=== PATIENT | female | born 1995 | race Two or more races ===

== ENCOUNTER 2020-11-06 13:25 | Emergency (ER) | payer MEDICAID, OTHER ==
[~2020-11-06] VITALS: Ht 162.6 cm; Wt 64.9 kg
[2020-11-06 14:02] VITALS: BP 137/77
== END 2020-11-06 14:34 | disposition home or self-care (01) ==
LOC: ER 13:27
DX: S92.422A Displaced fracture of distal phalanx of left great toe, initial encounter for closed fracture (principal); W22.8XXA Striking against or struck by other objects, initial encounter; Y93.89 Activity, other specified; Y92.89 Other specified places as the place of occurrence of the external cause; Y99.8 Other external cause status
CPT/HCPCS: 73630; 99283; L3260

== ENCOUNTER 2021-11-15 17:21 | Emergency (ER) | payer MEDICAID ==
[~2021-11-15] VITALS: Ht 162.6 cm; Wt 69.0 kg
[2021-11-15 18:46] VITALS: BP 129/79
[2021-11-15] MEDS ORDERED: TETANUS-DIPTH-ACEL PERTUSSIS 0.5ML SYR Tdap IM ONE (19:00)
[2021-11-15] MEDS ORDERED: AMOX-277 PO (19:04)
== END 2021-11-15 19:13 | disposition home or self-care (01) ==
LOC: ER 17:23
DX: S80.811A Abrasion, right lower leg, initial encounter (principal); W55.01XA Bitten by cat, initial encounter; Y93.89 Activity, other specified; Y92.89 Other specified places as the place of occurrence of the external cause; Y99.8 Other external cause status
CPT/HCPCS: 90471; 90715